=== PATIENT | male | born 2000 | race Two or more races ===

== ENCOUNTER 2018-11-05 01:10 | Emergency (ER) | payer OTHER ==
--- NOTE | 2018-11-05 01:50 | ER Document Report ---
HPI - HPI Time Seen by Provider: 11/05/18 01:37 Pain Level: 2 Notes: Patient is an otherwise healthy 18-year-old male presenting to the emergency department chief complaint of left thumb injury. Patient reports he was walking into his garage when he accidentally hit the wall with his hand and his thumb bent backwards. Patient states he went to the [facility] where they x-rayed him and told him that there was nothing wrong. He feels that they did not take him seriously and possibly x-rayed the wrong part of his hand. Past Medical History - General Information source: Patient - Social History Smoking Status: Never Smoker Family History: Reviewed & Not Pertinent - Medical History Medical History: Negative Surgical Hx: Negative - Immunizations Immunizations up to date: Yes Vertical Provider Document - CONSTITUTIONAL Notes: PHYSICAL EXAMINATION: GENERAL: Well-appearing, well-nourished and in no acute distress. HEAD: Atraumatic, normocephalic. EYES: Pupils equal round extraocular movements intact, conjunctiva are normal. ENT: Nares patent NECK: Normal range of motion LUNGS: No respiratory distress Musculoskeletal: Normal range of motion to left thumb, no obvious deformity noted, no ecchymosis noted. Mild swelling noted. NEUROLOGICAL: Normal speech, normal gait. PSYCH: Normal mood, normal affect. SKIN: Warm, Dry, normal turgor, no rashes or lesions noted. - INFECTION CONTROL TRAVEL OUTSIDE OF THE [place] IN LAST 30 DAYS: No Course - Re-evaluation Re-evalutation: Finger X-Ray 11/05/18 01:37 IMPRESSION: No acute findings. - Vital Signs Vital signs: Temp Pulse Resp BP Pulse Ox 97.2 F 51 L 16 125/71 98 11/05/18 01:18 11/05/18 01:18 11/05/18 01:18 11/05/18 01:18 11/05/18 01:18 Discharge - Discharge Clinical Impression: Injury of right thumb Qualifiers: Encounter type: initial encounter Qualified Code(s): S69.91XA - Unspecified injury of right wrist, hand and finger(s), initial encounter Condition: Stable Disposition: HOME, SELF-CARE Additional Instructions: Contusion Your injury has resulted in a contusion -- a crushing of the deep tissues. No injury to important structures was detected during the physician's exam. Contusions vary in the amount of pain they cause, and in the length of time required for healing. Typically, the area will become bruised, and will remain painful to touch for two or three weeks. However, most patients are back to working and playing within a few days. After the initial period of rest and cold-packs, your symptoms (together with the doctor's recommendations) will determine how rapidly you can get back to full activity. Usually this means "do what feels okay, but don't do things that hurt." If re-examination was recommended, it's important to follow up as inst ructed. Call the doctor or return any time if pain increases, if swelling becomes severe, if you develop numbness or weakness in an injured extremity, or if any other alarming symptoms occur. Ice & Elevation Apply ice packs frequently against the painful area. Many different schedules are recommended, such as "20 minutes on, 20 minutes off" or "one hour ice, two hours rest." If you need to work, you may need to go longer between ice treatments. You should plan to have the area ice packed AT LEAST one-fourth of the time. The ice should be applied over the wrap, tape, or splint, or over a layer of cloth -- not directly against the skin. Some ice bags have a built-in cloth and can be put directly on the skin. Your injured part should be elevated as much as possible over the next 48 hours. Try to keep the injury above the level of the heart. Avoid use of the injured area. Elevation and rest will decrease the swelling. Ibuprofen Ibuprofen is an excellent, safe drug for pain control. In addition, it has potent antiinflammatory effects which are beneficial, especially in the treatment of injuries, arthritis, or tendonitis. It's best to take ibuprofen with food. Persons with ulcer disease or allergy to aspirin should notify their physician of this before taking ibuprofen. Take the medication exactly as prescribed. Don't take additional doses unless instructed to do so by your doctor. If you develop wheezing, shortness of breath, hives, faintness, stomach pain, vomiting, or dark black stools, return for re-evaluation at once. The x-rays were negative for any fracture or dislocation. Please take ibuprofen [id number] as directed to help with pain and inflammation. Referrals: [facility] [Primary [facility] Provider] - Follow up as needed
--- NOTE | 2018-11-05 02:43 | RADIOLOGY REPORT (SQ) ---
EXAM DESCRIPTION: XR FINGERS COMPLETED DATE/TME: 11/05/2018 01:37 CLINICAL HISTORY: 18 years Male, right thumb pain s/p injury COMPARISON: None. Findings: Bones, joints, and soft tissues of the RIGHT XR FINGERS 3 VIEWS appear intact. IMPRESSION: No acute findings.
[2018-11-05 03:04] VITALS: BP 131/69
== END 2018-11-05 03:04 | disposition home or self-care (01) ==
LOC: ER 01:10
DX: S69.91XA Unspecified injury of right wrist, hand and finger(s), initial encounter (principal); W22.01XA Walked into wall, initial encounter
CPT/HCPCS: 99283